=== PATIENT | male | born 1980 | race Caucasian/White ===

== ENCOUNTER 2018-02-10 09:30 | Day surgery (SDC) | payer OTHER, SELFPAY ==
[2018-02-10 10:13] VITALS: BP 148/89; PULSE 56; RESP 16; TEMP 36.1; O2SAT 98
[2018-02-10] MEDS: SODIUM CHLORIDE 0.9% 1,000 ML 200 ML IV (10:13)
--- NOTE | 2018-02-10 10:57 | P.HP_ITS ---
History of Present Illness Chief complaint: [id number] COLONOSCOPY Narrative: Lawrence Elena is a 37 year old male He has had rectal bleeding is here for colonoscopy. No prior exam. Patient History Medical History Hypertension (Acute) TBI (traumatic brain injury) (Acute) Family & Social History Family History: Reviewed 02/10/18 by Js Gutierres MD Meds Home Medications Medication Instructions Recorded Confirmed Type lisinopril 10 mg PO DAILY 02/10/18 02/10/18 History Allergies Allergy/AdvReac Type Severity Reaction Status Date / Time cefaclor [From Ceclor] Allergy Intermediate Hives Verified 02/10/18 09:58 Review of Systems Review of Systems All systems reviewed & are unremarkable except as noted in HPI and below Exam Vital Signs (past 8 hours): Vital Signs - 8 hr 3 02/10/18 10:13 Temperature 97.0 F L Pulse Rate 56 L Respiratory Rate 16 Blood Pressure 148/89 H Pulse Oximetry 98 Pulse Oximetry 98 Oxygen Delivery Method Room Air Narrative Exam Narrative: Coop cooperative in no apparent distress lungs are clear no rales or rhonchi heart regular rate and rhythm no murmur or gallop of scaphoid soft nontender without masses alert and oriented x3. Assessment & Plan Plan: Plan: I have discussed the procedure and the rationale with the patient including risks of bleeding, perforation which would necessitate a major operation, failure to find remove all lesions and the potential to tattoo. They appeared to understand and wished to proceed.
--- NOTE | 2018-02-10 10:57 | PM.PREOP ---
Pre-operative Note Interval Note Pre-op Check: History & Physical exam performed today H&P completed within 30 days and has changed as indicated here:: None ASA Class (for procedural sedation): II
[2018-02-10] MEDS: fentaNYL 250 MCG/5 ML INJ IV (11:10)
[2018-02-10] MEDS: MIDAZOLAM 5 MG/5 ML VIAL IV (11:11)
--- NOTE | 2018-02-10 11:18 | PM.OP.ENDO ---
Operative Date/Time/Diagnoses - Date of procedure: 02/10/18 Time of procedure: 11:18 Pre-op diagnosis: Rectal bleeding Post-op diagnosis: same (Cause not found) Procedure & Clinicians Study performed: Colonoscopy Same procedure as scheduled: Yes Indications: Rectal bleeding Surgeon: Js Gutierres Procedure Notes SCOAP/Timeout: Performed Procedure in detail: The patient was placed in the left lateral decubitus position and underwent IV sedation directed by the surgeon consisting of fentanyl and Versed. Digital exam was unremarkable. The scope was inserted and advanced through the rectum into the sigmoid, descending, transverse, and ascending colon. No lesions were seen.. The cecum was reached identified by the ileocecal valve and the appendiceal opening. The ileocecal valve was successfully cannulated. The terminal ileum was normal in appearance. The scope was gradually brought out. No polyps were found. The scope ultimately was retroflexed in the rectum. The appearance was also normal. There were no large hemorrhoids. No ulceration.. The scope was removed slowly through the anal canal and nothing was seen that was unusual. the patient tolerated the procedure well Scope withdrawal time: 8 min Sedation minutes: 18 Findings: other findings (Normal exam. Source of bleeding not found. Prep was very good.) Specimen(s): none sent Complications: none Recommendations: Other recommendation (Colonoscopy at age 48 for screening purposes) Plan for aftercare: Follow-up as needed Follow up: as needed Disposition: ICU
[2018-02-10 11:20] VITALS: BP 101/66; PULSE 50; RESP 14; TEMP 36.6; O2SAT 99
[2018-02-10 11:26] VITALS: BP 106/64; PULSE 54; RESP 12; O2SAT 99
[2018-02-10 11:48] VITALS: BP 106/72; PULSE 54; RESP 16; O2SAT 100
--- NOTE | 2018-02-10 11:57 | SUR.PHASEII ---
Home with usual colonoscopy discharge instructions. Wide awake, no pain, taking fluids well. On d/c to waiting room until ride (Angelito) arrives.
== END 2018-02-10 11:53 ==
PROVIDERS: Visit Provider Specialist
PROC: 0DJD8ZZ Inspection of Lower Intestinal Tract, Via Natural or Artificial Opening Endoscopic (ICD-10-PCS; CPT 45378; principal; 2018-02-10 10:45)
DX: K62.5 Hemorrhage of anus and rectum (principal); I10 Essential (primary) hypertension; Z87.820 Personal history of traumatic brain injury
CPT/HCPCS: 45378; 99152; J2250; J3010